=== PATIENT | male | born 1965 | race Caucasian/White ===

== ENCOUNTER 2017-05-20 06:52 | Emergency (ER) | payer OTHER ==
[~2017-05-20] VITALS: Ht 182.9 cm; Wt 101.5 kg
[2017-05-20 07:02] VITALS: BP 127/76; PULSE 91; RESP 20; TEMP 98.9; O2SAT 98
[2017-05-20 07:41] LABS: AUTOMATED NEUTROPHIL # 4.1 TH/MM3 (1.8-7.7); BASOPHIL % 0.4 % (0.0-2.0); EOSINOPHIL # 0.1 TH/MM3 (0-0.4); EOSINOPHIL % 1.9 % (0.0-4.0); HEMATOCRIT 41.3 % (39.0-51.0); HEMOGLOBIN 14.2 GM/DL (13.0-17.0); LYMPH % 23.4 % (9.0-44.0); LYMPHOCYTE # 1.5 TH/MM3 (1.0-4.8); MEAN CELL VOLUME 84.5 FL (80.0-100.0); MEAN CORPUSCULAR HGB CONC 34.3 % (32.0-36.0); MONO % 8.5 % (0.0-8.0); MONOCYTE # 0.5 TH/MM3 (0-0.9); NEUT % 65.8 % (16.0-70.0); PLATELET COUNT 267 TH/MM3 (150-450); RED BLOOD COUNT 4.88 MIL/MM3 (4.50-5.90); WHITE BLOOD COUNT 6.3 TH/MM3 (4.0-11.0)
[2017-05-20 07:55] LABS: ALBUMIN 3.8 GM/DL (3.4-5.0); ALT (GPT) 34 U/L (12-78); AST (GOT) 21 U/L (15-37); BICARBONATE 26.1 MEQ/L (21.0-32.0); BLOOD UREA NITROGEN 9 MG/DL (7-18); CALCIUM 8.6 MG/DL (8.5-10.1); CHLORIDE 107 MEQ/L (98-107); CREATININE 1.14 MG/DL (0.60-1.30); GLOMERULAR FILTRATION RATE 68 ML/MIN (>89); GLUCOSE,RANDOM 109 MG/DL (74-106); SODIUM (NA) 139 MEQ/L (136-145)
[2017-05-20 07:58] LABS: ALKALINE PHOSPHATASE 75 U/L (45-117); TOTAL BILIRUBIN ADULT 0.4 MG/DL (0.2-1.0); TOTAL PROTEIN 7.4 GM/DL (6.4-8.2)
[2017-05-20 08:00] LABS: BILIRUBIN, URINE NEG (NEG); BLOOD, URINE MOD (NEG); GLUCOSE,URINE NEG (NEG); KETONE, URINE NEG (NEG); MUCUS URINE FEW /lpf (OCC); NITRITE,URINE NEG (NEG); PH, URINE 6.5 (5.0-8.5); URINE COLOR YELLOW (YELLW/STRAW); URINE LEUKOCYTE ESTERASE NEG (NEG)
--- NOTE | 2017-05-20 08:10 | PD ---
HPI Chief Complaint: Cold / Flu Symptoms Time Seen by Provider: 08:10 Travel History International Travel<30 days: No Contact w/Intl Traveler<30days: No Traveled to known affect area: No History of Present Illness HPI This is a 51-year-old male with a history of bipolar disorder, hyperlipidemia, presents today with complaints of nausea vomiting diarrhea. Patient reports that he was just started on risperidone on Thursday. He reports shortly thereafter, he started experiencing nausea. He states that the nausea has progressed to nausea vomiting diarrhea over the last several days. He reports that they decreased his risperidone dose thinking that it was related to his symptoms. Despite this, he is still having the symptoms. He has not taken his risperidone today. He denies any fevers, chills. There is no reported cough or URI symptoms. Patient states that he has had a mild headache. He denies any stiff neck. He denies any numbness or tingling of his extremities. There is no dysuria, urgency, frequency. There are no other complaints at the time of my examination. PFSH Social History Tobacco Use: No Allergies-Medications (Allergen,Severity, Reaction): Coded Allergies: No Known Allergies (Unverified , 05/20/17) Reported Meds & Prescriptions Reported Meds & Active Scripts Active Reported Risperidone 1 Mg Tab 1 Mg PO DAILY Paroxetine (Paroxetine HCl) 40 Mg Tab 60 Mg PO DAILY Atorvastatin (Atorvastatin Calcium) 20 Mg Tab 20 Mg PO HS Trazodone (Trazodone HCl) 150 Mg Tablet 150 Mg PO HS Review of Systems Except as stated in HPI: all other systems reviewed are Neg General / Constitutional: No: Fever, Chills Eyes: No: Photophobia, Drainage, Pain HENT: Positive: Headaches, No: Lightheadedness, Neck Stiffness, Neck Pain Cardiovascular: No: Chest Pain or Discomfort, Palpitations Respiratory: No: Cough, Shortness of Breath Gastrointestinal: Positive: Nausea, Vomiting, Diarrhea, No: Abdominal Pain ( Other than intermittent cramping with the diarrhea) Genitourinary: No: Frequency, Dysuria Musculoskeletal: No: Weakness, Pain Neurologic: Positive: Headache (Mild bifrontal), No: Weakness, Dizziness Physical Exam Narrative GENERAL: Well-developed well-nourished male in no acute respiratory distress. SKIN: Focused skin assessment warm/dry. HEAD: Atraumatic. Normocephalic. EYES: No scleral icterus. No injection or drainage. ENT: No nasal bleeding or discharge. Mucous membranes pink and moist. NECK: Trachea midline. Supple. No rigidity. CARDIOVASCULAR: Regular rate and rhythm. No murmur appreciated. RESPIRATORY: No accessory muscle use. Clear to auscultation. Breath sounds equal bilaterally. GASTROINTESTINAL: Abdomen soft, non-tender, nondistended. No rebound or guarding elicited on deep palpation. Patient states that he has subjective crampy sensation in his abdomen when he has the diarrhea. This was not elicited on my examination. MUSCULOSKELETAL: No obvious deformities. No clubbing. No cyanosis. No edema. NEUROLOGICAL: Awake and alert. No obvious cranial nerve deficits. Motor grossly within normal limits. Normal speech. Data Data Last Documented VS Vital Signs Date Time Temp Pulse Resp B/P (MAP) Pulse Ox O2 Delivery O2 Flow Rate FiO2 05/20/17 08:16 99.3 83 19 122/69 (86) 96 Room Air Orders Orders Complete Blood Count With Diff (05/20/17 07:07) Comprehensive Metabolic Panel (05/20/17 07:07) Urinalysis - C+S If Indicated (05/20/17 07:07) Iv Access Insert/Monitor (05/20/17 07:07) Oxygen Administration (05/20/17 07:07) Oximetry (05/20/17 07:07) Lipase (05/20/17 07:07) Influenzae A/B Antigen (05/20/17 08:32) Ecg Monitoring (05/20/17 08:32) Dicyclomine Inj (Bentyl Inj) (05/20/17 08:45) Prochlorperazine Inj (Compazine Inj) (05/20/17 08:45) Sodium Chlor 0.9% 1000 Ml Inj (Ns 1000 M (05/20/17 08:45) Labs Laboratory Tests Test 05/20/17 07:17 05/20/17 07:20 White Blood Count 6.3 TH/MM3 Red Blood Count 4.88 MIL/MM3 Hemoglobin 14.2 GM/DL Hematocrit 41.3 % Mean Corpuscular Volume 84.5 FL Mean Corpuscular Hemoglobin 29.0 PG Mean Corpuscular Hemoglobin Concent 34.3 % Red Cell Distribution Width 13.0 % Platelet Count 267 TH/MM3 Mean Platelet Volume 8.0 FL Neutrophils (%) (Auto) 65.8 % Lymphocytes (%) (Auto) 23.4 % Monocytes (%) (Auto) 8.5 % Eosinophils (%) (Auto) 1.9 % Basophils (%) (Auto) 0.4 % Neutrophils # (Auto) 4.1 TH/MM3 Lymphocytes # (Auto) 1.5 TH/MM3 Monocytes # (Auto) 0.5 TH/MM3 Eosinophils # (Auto) 0.1 TH/MM3 Basophils # (Auto) 0.0 TH/MM3 CBC Comment DIFF FINAL Differential Comment Blood Urea Nitrogen 9 MG/DL Creatinine 1.14 MG/DL Random Glucose 109 MG/DL Total Protein 7.4 GM/DL Albumin 3.8 GM/DL Calcium Level 8.6 MG/DL Alkaline Phosphatase 75 U/L Aspartate Amino Transf (AST/SGOT) 21 U/L Alanine Aminotransferase (ALT/SGPT) 34 U/L Total Bilirubin 0.4 MG/DL Sodium Level 139 MEQ/L Potassium Level 4.1 MEQ/L Chloride Level 107 MEQ/L Carbon Dioxide Level 26.1 MEQ/L Anion Gap 6 MEQ/L Estimat Glomerular Filtration Rate 68 ML/MIN Lipase 88 U/L Urine Color YELLOW Urine Turbidity CLEAR Urine pH 6.5 Urine Specific [place] 1.015 Urine Protein 30 mg/dL Urine Glucose (UA) NEG mg/dL Urine Ketones NEG mg/dL Urine Occult Blood MOD Urine Nitrite NEG Urine Bilirubin NEG Urine Urobilinogen LESS THAN 2.0 MG/DL Urine Leukocyte Esterase NEG Urine RBC 21 /hpf Urine WBC 1 /hpf Urine Mucus FEW /lpf Microscopic Urinalysis Comment CULT NOT INDICATED MDM Medical Decision Making Medical Screen Exam Complete: Yes Emergency Medical Condition: Yes Differential Diagnosis Gastroenteritis versus medication related GI symptoms versus viral syndrome Narrative Course 51-year-old male history bipolar disorder, presents here with complaint and nausea vomiting since Thursday. Patient also reported diarrhea that started a couple days ago. Patient states that he just started risperidone. He states that his physician/psychiatrist told him risperidone can cause these symptoms. They have to his dose. Patient still had the symptoms despite this. The patient has been given Bentyl 20 mg IM 1 dose. Is also given 10 mg of Compazine and 1 L fluid. He states he feels much improved. He has been able to tolerate Gatorade and crackers. He will be discharged with a prescription for Zofran. He is instructed to call a psychiatrist today to find out whether or not he should continue his risperidone. He is not taking his risperidone today. Diagnosis Primary Impression: Nausea vomiting and diarrhea Additional Impressions: Suspected medication side effect History of bipolar disorder Additional Instructions: Drink plenty fluids. Gomer diet times 2448 hrs. Call your psychiatrist to find out whether he wants to continue the risperidone. Med/Other Pt SpecificInfo: Prescription(s) given Disposition: 01 DISCHARGE HOME Condition: Stable Pascual Tirado MD May 20, 2017 08:10
[2017-05-20 08:16] VITALS: BP 122/69; PULSE 83; RESP 19; TEMP 99.3; O2SAT 96
[2017-05-20] MEDS ORDERED: ATOR20TA15 PO (08:16)
[2017-05-20] MEDS ORDERED: PARO40TA2 PO (08:16)
[2017-05-20] MEDS ORDERED: TRAZ1TAB14 PO (08:16)
[2017-05-20] MEDS ORDERED: RISP1TAB2 PO (08:16)
[2017-05-20] MEDS ORDERED: SODIUM CHLOR 0.9% 1000 ML INJ 1,000 ML IV ONE (08:45)
[2017-05-20] MEDS ORDERED: PROCHLORPERAZINE INJ 10 MG/2 ML VIAL IV PUSH ONE (08:45)
[2017-05-20] MEDS ORDERED: DICYCLOMINE HCL 20 MG/2 ML VIAL IM ONE (08:45)
[2017-05-20] MEDS ORDERED: PROC10TA PO (10:56)
[2017-05-20 11:25] VITALS: BP 125/63
== END 2017-05-20 11:26 | disposition home or self-care (01) ==
LOC: NEPC 06:52
DX: R11.2 Nausea with vomiting, unspecified (principal); R19.7 Diarrhea, unspecified; F31.9 Bipolar disorder, unspecified
CPT/HCPCS: 80053; 81001; 83690; 85025; 87804; 96361; 96372; 96374; 99284; J0500; J0780; J7030